=== PATIENT | male | born 1980 | race African-American/Black ===

== ENCOUNTER 2024-07-04 19:11 | Emergency (ER) | payer OTHER ==
[~2024-07-04] VITALS: Ht 182.9 cm; Wt 64.0 kg
[2024-07-04 19:13] VITALS: BP 131/98; PULSE 101; RESP 18; TEMP 36.6; O2SAT 99
== END 2024-07-04 20:00 | disposition left against medical advice (07) ==
LOC: ER 19:11
DX: R51.9 Headache, unspecified (principal); Z53.21 Procedure and treatment not carried out due to patient leaving prior to being seen by health care provider
CPT/HCPCS: 99284